=== PATIENT | male | born 1965 | race Caucasian/White ===

== ENCOUNTER 2025-01-15 01:15 | Emergency (ER) | payer OTHER ==
[~2025-01-15] VITALS: Ht 165.1 cm; Wt 62.0 kg
[2025-01-15 01:25] VITALS: BP 193/88; PULSE 92; RESP 18; TEMP 36.8; O2SAT 99
== END 2025-01-15 01:33 ==
LOC: ER 01:15
DX: Z65.3 Problems related to other legal circumstances (principal); E11.9 Type 2 diabetes mellitus without complications; I10 Essential (primary) hypertension
CPT/HCPCS: 99283